=== PATIENT | male | born 1955 | race Asian ===

== ENCOUNTER 2019-03-06 10:03 | Day surgery (SDC) | payer OTHER ==
[2019-03-06] MEDS ORDERED: MIDAZOLAM 1 MG/ML 2 ML INJ ×2 (12:08)
[2019-03-06] MEDS ORDERED: FENTAnyl 50 MCG/ML VIAL (12:08)
== END 2019-03-06 12:43 | disposition home or self-care (01) ==
LOC: GIL 10:03
DX: Z12.11 Encounter for screening for malignant neoplasm of colon (principal); K64.8 Other hemorrhoids
CPT/HCPCS: 45378